=== PATIENT | female | born 1935 | race Hispanic/Latino ===

== ENCOUNTER → 2018-12-23 | Outpatient (CLI) | payer OTHER, MEDICARE | END | disposition home or self-care (01) | LOC: OIH 12:57 | PROVIDERS: ATTEND Family Medicine | DX: R05 Cough (principal); I70.0 Atherosclerosis of aorta; M48.00 Spinal stenosis, site unspecified; M85.88 Other specified disorders of bone density and structure, other site; M41.9 Scoliosis, unspecified | CPT/HCPCS: 71046 ==